=== PATIENT | female | born 1950 | race Caucasian/White ===

== ENCOUNTER → 2019-09-12 | Outpatient (CLI) | payer MEDICARE ==
--- NOTE | 2019-09-12 13:17 | PCVCIMAG ---
EXAM: BILATERAL SUPERFICIAL VENOUS DUPLEX INDICATION: Leg pain and swelling. FINDINGS: Right leg: No thrombus in the common femoral vein. Mild nonocclusive thrombus in the mid/lower main femoral vein and throughout the popliteal vein appears chronic. Right Great Saphenous Vein: At the saphenofemoral junction the diameter is 11.4 mm, in the mid thigh it is 8.3. mm, and in the calf it is 6.9 mm. There is significant venous insufficiency/reflux throughout. Venous insufficiency/reflux duration is 2.2 seconds. Right Small Saphenous Vein: At the saphenopopliteal junction the diameter is 3.2 mm, and in the calf it is 4.3 mm. There is not significant venous insufficiency/reflux throughout. Venous insufficiency/reflux duration is 0.2 seconds. There is a cranial extension present. Left leg: No thrombus in the common femoral, main femoral, or popliteal veins. These veins are compressible. Left Great Saphenous Vein: At the saphenofemoral junction the diameter is 8.6 mm, in the mid thigh it is 6.0 mm, and in the calf it is 3.4 mm. There is not significant venous insufficiency/reflux throughout. Venous insufficiency/reflux duration is 0 seconds. Left Small Saphenous Vein: At the saphenopopliteal junction the diameter is 2.7 mm, and in the calf it is 3.0 mm. There is not significant venous insufficiency/reflux throughout. Venous insufficiency/reflux duration is 0 seconds. There is not a cranial extension present. IMPRESSION: Right Great Saphenous Vein: Significant venous insufficiency/reflux is present as noted above. Right Small Saphenous Vein: No significant venous insufficiency/reflux is present as noted above. Left Great Saphenous Vein: No significant venous insufficiency/reflux is present as noted above. Left Small Saphenous Vein: No significant venous insufficiency/reflux is present as noted above. Mild nonocclusive thrombus in the mid/lower right main femoral vein and popliteal vein appears chronic. Incidental note is made of venous insufficiency/reflux in the right and left popliteal veins measuring up to 3.3 seconds in duration. LOC:[place] [id number]
== END | disposition home or self-care (01) ==
LOC: PCVCIMAG 09:28
PROVIDERS: ATTEND Nurse Practitioner
DX: I82.431 Acute embolism and thrombosis of right popliteal vein (principal); I82.411 Acute embolism and thrombosis of right femoral vein; Z78.9 Other specified health status; Z91.041 Radiographic dye allergy status
CPT/HCPCS: 93970